=== PATIENT | female | born 2000 | race Caucasian/White ===

== ENCOUNTER 2023-06-24 11:21 | Emergency (ER) | payer MEDICAID ==
[~2023-06-24] VITALS: Ht 167.6 cm; Wt 104.3 kg
[2023-06-24 11:50] VITALS: BP 123/75; PULSE 98; RESP 20; TEMP 96.8; O2SAT 98
--- NOTE | 2023-06-24 12:19 | NUR ---
PA AT BS TO EXAMINE PT
[2023-06-24] MEDS ORDERED: CIPR10SU RIGHT EAR (12:29)
[2023-06-24] MEDS ORDERED: CIPR10SU LEFT EAR (12:29)
--- NOTE | 2023-06-24 12:40 | NUR ---
Patient discharged with v/s stable. Written and verbal after care instructions given and explained. Patient verbalized understanding. Ambulatory with steady gait. All questions addressed prior to discharge. Advised to follow up with PMD.
[2023-06-25] MEDS ORDERED: CIPR10SU OT (12:03)
[2023-06-25] MEDS ORDERED: CIPR10SU RIGHT EAR (12:03)
== END 2023-06-24 12:40 | disposition home or self-care (01) ==
LOC: MED 11:21
DX: H60.93 Unspecified otitis externa, bilateral (principal); Z79.899 Other long term (current) drug therapy
CPT/HCPCS: 99283

== ENCOUNTER 2023-11-21 18:48 | Emergency (ER) | payer MEDICAID, OTHER ==
[~2023-11-21] VITALS: Ht 165.1 cm; Wt 111.6 kg
[~2023-11-21 18:48] MED LIST: CIPR10SU LEFT EAR; CIPR10SU OT; CIPR10SU RIGHT EAR
[2023-11-21 19:18] VITALS: BP 115/64; PULSE 88; RESP 18; TEMP 98.2; O2SAT 99
[2023-11-22] MEDS ORDERED: ACET-503 PO (13:47)
== END 2023-11-22 00:05 | disposition left against medical advice (07) ==
LOC: MED 18:48
DX: M79.18 Myalgia, other site (principal); M79.604 Pain in right leg; Z53.21 Procedure and treatment not carried out due to patient leaving prior to being seen by health care provider
CPT/HCPCS: 99281

== ENCOUNTER 2023-11-22 13:17 | Emergency (ER) | payer OTHER ==
[~2023-11-22] VITALS: Ht 165.1 cm; Wt 113.0 kg
[2023-11-22 13:25] VITALS: BP 117/71; PULSE 116; RESP 20; TEMP 97.7; O2SAT 98
[2023-11-22] MEDS ORDERED: KETOROLAC 60 MG/2 ML VIAL IM ONE (13:35)
[2023-11-22] MEDS ORDERED: ACET-503 PO (13:47)
== END 2023-11-22 14:16 | disposition home or self-care (01) ==
LOC: MED 13:17
DX: M54.50 Low back pain, unspecified (principal); M79.18 Myalgia, other site; F12.90 Cannabis use, unspecified, uncomplicated; Z79.2 Long term (current) use of antibiotics; Z88.0 Allergy status to penicillin
CPT/HCPCS: 81025; 96372; 99283; J1885

== ENCOUNTER 2024-07-06 00:07 | Emergency (ER) | payer OTHER ==
[~2024-07-06] VITALS: Ht 165.1 cm; Wt 104.3 kg
[~2024-07-06 00:07] MED LIST changes: +ACET-503 PO
[2024-07-06 00:10] VITALS: BP 127/87; PULSE 86; RESP 14; TEMP 98.2; O2SAT 100
== END 2024-07-06 01:07 | disposition left against medical advice (07) ==
LOC: MED 00:07
DX: S61.512A Laceration without foreign body of left wrist, initial encounter (principal); Z53.21 Procedure and treatment not carried out due to patient leaving prior to being seen by health care provider; X58.XXXA Exposure to other specified factors, initial encounter; Y92.89 Other specified places as the place of occurrence of the external cause; Y93.89 Activity, other specified; Y99.8 Other external cause status

== ENCOUNTER 2024-09-21 14:23 | Emergency (ER) | payer OTHER ==
[~2024-09-21] VITALS: Ht 165.1 cm; Wt 113.4 kg
[2024-09-21 14:51] VITALS: BP 114/63; PULSE 78; RESP 18; TEMP 98.3; O2SAT 98
[2024-09-21] MEDS ORDERED: IBUP-2230 PO (15:58)
[2024-09-21 16:11] VITALS: BP 113/63; PULSE 75; RESP 18; TEMP 98.3; O2SAT 99
== END 2024-09-21 16:11 | disposition home or self-care (01) ==
LOC: MED 14:23
DX: S60.021A Contusion of right index finger without damage to nail, initial encounter (principal); Z79.899 Other long term (current) drug therapy; Z88.0 Allergy status to penicillin; W23.0XXA Caught, crushed, jammed, or pinched between moving objects, initial encounter; Y93.89 Activity, other specified; Y92.89 Other specified places as the place of occurrence of the external cause; Y99.8 Other external cause status
CPT/HCPCS: 73140; 99283